=== PATIENT | female | born 1980 | race Two or more races ===

== ENCOUNTER 2022-02-25 11:55 | Outpatient (CLI) | payer OTHER | END 2022-02-25 12:31 | disposition home or self-care (01) | LOC: SONOGRAMA 11:55 | PROVIDERS: ATTEND General Practice | DX: E06.3 Autoimmune thyroiditis (principal); E04.2 Nontoxic multinodular goiter; Z68.34 Body mass index [BMI] 34.0-34.9, adult; E66.09 Other obesity due to excess calories; F41.1 Generalized anxiety disorder; E55.9 Vitamin D deficiency, unspecified; E56.8 Deficiency of other vitamins; R73.01 Impaired fasting glucose; Z13.1 Encounter for screening for diabetes mellitus ==

== ENCOUNTER 2024-11-27 05:20 | Day surgery (SDC) | payer OTHER ==
[2024-11-21 08:39] VITALS: BP 122/69
[2024-11-21 08:39] LABS: HEMATOCRIT 36.9 % (36.0-45.00); HEMOGLOBIN 12.5 g/dL (12.0-15.00); MEAN CELL VOLUME 77.1 fL (80.00-100.00); MEAN CORPUSCULAR HEMOGLOBIN 26.2 pg (27.00-32.0); MEAN CORPUSCULAR HGB CONC 33.9 g/dl (32.0-36.0); PLATELET COUNT 346 K/uL (150-450); RED BLOOD COUNT 4.78 M/uL (4.00-6.00); RED CELL DISTRIBUTION WIDTH 13.6 % (11.5-14.5)
[2024-11-21 08:42] LABS: URINE APPEARANCE Clear; URINE BACTERIA 176.2 uL (0.0-1933); URINE BILIRRUBIN Negative (NEGATIVE); URINE BLOOD Trace; URINE COLOR Yellow; URINE EPITHELIAL CELLS 22.6 uL (0.0-38.8); URINE GLUCOSE Negative (NEGATIVE); URINE KETONE Negative (NEGATIVE); URINE LEUKOCYTE Small; URINE NITRATE Negative; URINE PROTEIN Negative (NEGATIVE); URINE UROBILINOGEN 0.2 E.U./dl; URINE WBC 32.9 uL (0.0-23.2)
[2024-11-21 08:45] LABS: URINE CAST 0.44 uL (0.0-1.40)
[2024-11-21 09:01] LABS: INR < 0.93; PARTIAL THROMBOPLASTIN TIME 29.6 SECONDS (22.0-34.0); PROTHROMBIN TIME 10.2 SECONDS (9.0-11.5)
[2024-11-21 09:22] LABS: ALBUMIN 3.7 gm/dL (3.4-5.0); BILIRUBIN TOTAL 0.29 mg/dL (0.3-1.2); CALCIUM 8.9 mg/dL (8.5-10.1); CREATININE SERUM 0.64 mg/dL (0.55-1.02); GFR 101.28; GLOBULINA 3.8 G/DL (2.4-3.5); POTASSIUM 4.05 mEq/L (3.5-5.1); TOTAL PROTEIN 7.5 gm/dL (6.4-8.2)
[~2024-11-27] VITALS: Ht 152.4 cm; Wt 72.6 kg
[~2024-11-27 05:20] MED LIST: CLONAZEPAM1 M1 PO; DULOXETINE HCL40 MG PO; SYNTHROID112 MCG PO; TOPROL XL25 M1 PO
[2024-11-27] MEDS ORDERED: POVIDONE-IODINE 118 ML BOTT TOP ONE (07:11)
[2024-11-27] MEDS ORDERED: ONDANSETRON HCL 2 MG/ML VIAL IV ONE (08:15)
[2024-11-27] MEDS ORDERED: ONDANSETRON HCL 2 MG/ML VIAL ONE (09:52)
== END 2024-11-27 13:30 | disposition home or self-care (01) ==
LOC: CIR.AMB 05:20
PROVIDERS: ATTEND Obstetrics & Gynecology
DX: N87.0 Mild cervical dysplasia (principal); Z88.5 Allergy status to narcotic agent; I10 Essential (primary) hypertension; E03.8 Other specified hypothyroidism; E78.5 Hyperlipidemia, unspecified; N72 Inflammatory disease of cervix uteri